=== PATIENT | female | born 1985 | race Caucasian/White ===

== ENCOUNTER 2018-11-17 13:15 | Emergency (ER) | payer OTHER ==
--- NOTE | 2018-11-17 13:20 | UC ---
Bite Injury/Animal HPI - HPI Summary HPI Summary: Pt presents to s/p bee sting. Pt states was stung at 12:30 at work. states felt lightheaded No hives, no sob, no facial edema. Pt states was stung as child - but has not been stung recently. No h/o anaphylaxis Pt states she used her co-worker's epi pen because of the lightheadedness Pt states her symptoms improved initially,but are starting to come back so she came to . No other medications taken not no prescribed meds - History of Current Complaint Stated Complaint: BEE STING Time Seen by Provider: 11/17/18 13:19 Hx Obtained From: Patient Hx Last Menstrual Period: MIRENA IUD ?: No Severity Currently: Mild Severity Initially: Mild Pain Scale Used: 0-10 Numeric - Allergies/Home Medications Allergies/Adverse Reactions: Allergies Allergy/AdvReac Type Severity Reaction Status Date / Time bee venom protein (honey bee) Allergy Difficulty Verified 11/17/18 13:26 Breathing Sulfa (Sulfonamide Allergy Hives Verified 11/17/18 13:26 Antibiotics) PMH/Surg Hx/FS Hx/Imm Hx Previously Healthy: Yes - Surgical History Surgical History: Yes Surgery Procedure, Year, and Place: CHOLECYSTECTOMY, TONSILLECTOMY - Family History Known Family History: Positive: Non-Contributory - Social History Occupation: Employed Full-time Lives: With Family Alcohol Use: Occasionally Substance Use Type: None Smoking Status (MU): Current Every Day Smoker Type: Cigarettes Amount Used/How Often: 1 PPD Have You Smoked in the Last Year: Yes Household Exposure Type: Cigarettes - Immunization History Most Recent Influenza Vaccination: 2012 Most Recent Tetanus Shot: 201306/27/13 Most Recent Pneumonia Vaccination: n/a Review of Systems All Other Systems Reviewed And Are Negative: Yes Constitutional: Positive: Negative Skin: Positive: Negative Eyes: Positive: Negative Neurological: Positive: Other - slight lightheaded Psychological: Positive: Negative Is Patient Immunocompromised?: No Physical Exam - Summary Physical Exam Summary: Vital Signs Reviewed: Yes A+Ox3, no distressm appropriate, no distress Eyes: Conjunctiva Clear, EULALIO. EOM intact and full ENT: Hearing grossly normal TM x 2 clear, mmoist, no intraoral or facial edema uvula midline, no exudate, no erythema Neck: Positive: Supple Respiratory: Positive: No respiratory distress, No accessory muscle use + CTA throughout no w/r speaking full, easy sentences Cardiovascular: RRR nl s1, s2 no m/r CBT <2 sec abd soft + BS nt/nd no guarding, no distension Musculoskeletal Exam: LEE x 4 without difficulty Strength Intact, ROM Intact Neurological: Positive: Alert, + sensation throughout Psychological: Positive: Normal Response To wool hanker Skin: Positive: no rash, no ecchymosis Triage Information Reviewed: Yes Vital Signs Reviewed: No Re-Evaluation - Re-Evaluation First Eval Comment: pt feels well - VSS BP improved. will discharge home. Rx pepcid, pred, epipen. reviewed allergic treatment plan Bite Injury Course/Dx - Course Course Of Treatment: Pt presents to feeling lightheaded - pt stung by bee as 1220ish - use a coworked epipen - states felt okay for abit but started to feel lightheaded again so came to . No cp, sob, abd pain. No facial edema, difficulty swallowing VSS - slight increased BP - likely related to sx will give benadryl, solumedrol, pepcid close monitoring - Differential Dx/Diagnosis Provider Diagnosis: Allergic reaction to bee sting Discharge - Sign-Out/Discharge Documenting (check all that apply): Patient Departure All imaging exams completed and their final reports reviewed: No Studies - Discharge Plan Condition: Stable Disposition: HOME Prescriptions: EPINEPHrine [Epipen 2-Mumtaz] 0.3 mg IJ ONCE #1 auto.injct Famotidine TAB* [Pepcid 20 MG TAB*] 20 mg PO DAILY #12 tab predniSONE TAB* [Deltasone TAB*] 50 mg PO DAILY #4 tab Patient Education Materials: Insect Bite or Sting (ED) Referrals: [facility] [place] [facility] [Outside] No Primary Care Phys,NOPCP [Primary Care Provider] - Additional Instructions: - Take prednisone exactly as prescribed until gone - starting today - Okay to take Benadryl (1-2 tablets) every 6 hours as needed. This medication may cause drowsiness - do NOT drive, operate machinery or drink alcohol while taking Benadryl -Take pepcid as prescribed - 2 times daily for 6 days -Avoid getting over heated (hot showers, hot tubs, exercise) for at least 48 hours - Try to avoid aspirin, NSAIDs (Motrin, Aleve, Naprosyn) for 2-3 days - Okay to apply cool compresses to the area of injury -Contact your doctor or return here with questions or concerns - Billing Disposition and Condition Condition: STABLE Disposition: Home
[2018-11-17] MEDS ORDERED: methylPREDNISolone 125 MG* 2 ML VIAL IV ONE (13:22)
[2018-11-17] MEDS ORDERED: Famotidine IV* 10 MG/ML 2 ML (20 mg) IV SLOW PU ONE (13:22)
[2018-11-17] MEDS ORDERED: diPHENhydraMINE IV* 50 MG/ML 1 ml VIAL (BENADRYL) IV ONE (13:22)
[2018-11-17 14:13] VITALS: BP 103/72
== END 2018-11-17 14:20 | disposition home or self-care (01) ==
LOC: UCEAST 13:15
DX: T63.441A Toxic effect of venom of bees, accidental (unintentional), initial encounter (principal); Y92.9 Unspecified place or not applicable; F17.210 Nicotine dependence, cigarettes, uncomplicated; Z88.2 Allergy status to sulfonamides
CPT/HCPCS: 96374; 96376; 99202; G0463; J1200; J2930

== ENCOUNTER 2019-02-28 14:54 | Emergency (ER) | payer MEDICAID, OTHER ==
[2019-02-28 15:23] VITALS: BP 113/72
--- NOTE | 2019-02-28 15:55 | UC ---
Lower Extremity/Ankle HPI - HPI Summary HPI Summary: YESTERDAY MORNING LEFT FOOT WAS ASLEEP WHEN SHE STOOD UP AND TOOK A STEP. HER FOOT FOLDED UNDER ITSELF AND PATIENT HEARD A POP AND A CRUNCH AND PATIENT NOW HAS SIGNIFICANT SWELLING, BRUISING AND PAIN. - History of Current Complaint Chief Complaint: UCLowerExtremity Stated Complaint: FOOT INJURY Time Seen by Provider: 02/28/19 15:34 Hx Obtained From: Patient Hx Last Menstrual Period: unknown Onset/Duration: Sudden Onset, Lasting Days - 1 DAY, Still Present Severity Initially: Moderate Severity Currently: Moderate Pain Intensity: 10 Pain Scale Used: 0-10 Numeric Aggravating Factor(s): Standing, Ambulation Alleviating Factor(s): Rest, Elevation Able to Bear Weight: Yes - WITH PAIN - Allergies/Home Medications Allergies/Adverse Reactions: Allergies Allergy/AdvReac Type Severity Reaction Status Date / Time bee venom protein (honey bee) Allergy Difficulty Verified 02/28/19 15:23 Breathing Sulfa (Sulfonamide Allergy Hives Verified 02/28/19 15:23 Antibiotics) PMH/Surg Hx/FS Hx/Imm Hx Previously Healthy: Yes - Surgical History Surgical History: Yes Surgery Procedure, Year, and Place: CHOLECYSTECTOMY, TONSILLECTOMY - Family History Known Family History: Positive: None, Non-Contributory - Social History Alcohol Use: Occasionally Substance Use Type: None Smoking Status (MU): Heavy Every Day Tobacco Smoker Type: Cigarettes Amount Used/How Often: 1 PPD Have You Smoked in the Last Year: Yes Household Exposure Type: Cigarettes - Immunization History Most Recent Influenza Vaccination: 2012 Most Recent Tetanus Shot: 201306/27/13 Most Recent Pneumonia Vaccination: n/a Review of Systems All Other Systems Reviewed And Are Negative: Yes Constitutional: Positive: Negative Skin: Positive: Bruising Respiratory: Positive: Negative Cardiovascular: Positive: Negative Gastrointestinal: Positive: Negative Musculoskeletal: Positive: Arthralgia, Decreased ROM, Edema Physical Exam Triage Information Reviewed: Yes Appearance: Well-Appearing, No Pain Distress, Well-Nourished Vital Signs: Initial Vital Signs Temp 97.8 F 02/28/19 15:18 Pulse 93 02/28/19 15:18 Resp 16 02/28/19 15:18 BP 113/72 02/28/19 15:18 Pulse Ox 100 02/28/19 15:18 Vital Signs Reviewed: Yes Eyes: Positive: Conjunctiva Clear ENT: Positive: Hearing grossly normal Neck: Positive: Supple Respiratory: Positive: No respiratory distress, No accessory muscle use Cardiovascular: Positive: Pulses Normal, Brisk Capillary Refill Abdomen Description: Positive: Soft Musculoskeletal: Positive: ROM Limited @ - LEFT TOES, Edema @ - LEFT FOOT, Other : - TTP DORSAL LEFT FOOT Neurological: Positive: Alert Psychological: Positive: Age Appropriate Behavior Skin: Positive: Other - BRUISING DORSAL SURFACE LEFT FOOT Diagnostics - Radiology LEFT FOOT XRAYS Radiology Interpretation Completed By: Radiologist Summary of Radiographic Findings: SOFT TISSUE SWELLING. NO ACUTE OSSEOUS INJURY Lower Extremity Course/Dx - Course Course Of Treatment: LEFT FOOT X-RAY NEGATIVE FOR FRACTURE OR DISLOCATION. SHE HAS SOME SIGNIFICANT BRUISING AND SOFT TISSUE SWELLING. IS UNABLE TO WIGGLE HER SECOND TO FIFTH TOES. THIS MAY BE DUE TO HER PAIN AND SWELLING HOWEVER THERE IS SOME CONCERN FOR TENDON INJURY. ADVISED PATIENT TO REST, ELEVATE AND ICE HER FOOT. IF SHE IS UNABLE TO MOVE HER TOES HER SWELLING AND PAIN IMPROVED AND SHE WILL NEED ORTHOPEDIC FOLLOW-UP. ENID WRAP, CAN BOOT AND CRUTCHES TO HELP WITH DISCOMFORT AND MOBILITY. NSAIDS NEEDED FOR DISCOMFORT. TRAMADOL FOR BREAKTHROUGH. CYTOPATHOLOGY TECHNOLOGIST NEGATIVE. - Differential Dx/Diagnosis Provider Diagnosis: Sprain of left foot Discharge ED - Sign-Out/Discharge Documenting (check all that apply): Patient Departure All imaging exams completed and their final reports reviewed: Yes - Discharge Plan Condition: Stable Disposition: HOME Prescriptions: traMADol TAB* [Ultram*] 50 mg PO Q6HR PRN #12 tab MDD 4 PRN Reason: Pain Patient Education Materials: Contusion in Adults (ED), Foot Sprain (ED) Forms: *Gen. Provider Communication Referrals: Noe Del Valle MD [Medical Doctor] - 1 Week Additional Instructions: XRAY TODAY NEGATIVE FOR FRACTURE OR DISLOCATION. YOUR SYMPTOMS SHOULD IMPROVE SIGNIFICANTLY OVER THE NEXT 1-2 WEEKS. IF YOU DO NOT IMPROVE EXPECTED FOLLOW- UP WITH ORTHO. YOU MAY BENEFIT FROM REPEAT/MORE ADVANCED IMAGING AT THAT TIME. YOU SHOULD BE ABLE TO WIGGLE YOUR TOES YOUR SWELLING IMPROVES. IBUPROFEN OR ALEVE NEEDED FOR DISCOMFORT. TRAMADOL FOR BREAKTHROUGH. REST, ICE, COMPRESS , ELEVATE. ENID WRAP, CAMBOOT AND CRUTCHES NEEDED FOR SYMPTOM RELIEF AND TO HELP WITH MOBILITY. - Billing Disposition and Condition Condition: STABLE Disposition: Home
== END 2019-02-28 16:58 | disposition home or self-care (01) ==
LOC: UCEAST 14:54
DX: S93.602A Unspecified sprain of left foot, initial encounter (principal); F17.210 Nicotine dependence, cigarettes, uncomplicated; Z91.030 Bee allergy status; Z88.2 Allergy status to sulfonamides; X50.0XXA Overexertion from strenuous movement or load, initial encounter; Y92.9 Unspecified place or not applicable
CPT/HCPCS: 99213; G0463